=== PATIENT | male | born 1975 | race Caucasian/White ===

== ENCOUNTER → 2017-08-08 | Outpatient (CLI) | payer BC ==
[~2017-08-08] MED LIST: HYDR-4309 PO; LEVO-85 PO; NO RTN MEDS; PHEN118S56 PO
--- NOTE | 2017-08-08 11:29 | RADIOLOGY IMAGING REPORT ---
FACILITY: [facility] PATIENT NAME: Dhruv Ramirez : 1975 MR: [id number] V: [id number] EXAM DATE: ORDERING PHYSICIAN: DIEGO MCGRAW TECHNOLOGIST: Location: [facility] [place] Patient: Dhruv Ramirez : 1975 Visit/Account:[id number] Date of Sevice: 08/08/2017 Exam type: FOREARM RIGHT History: Right forearm pain Comparison: None. Findings: Two views of the right forearm reveal no evidence of acute fracture or dislocation. No lytic or anni tic bone lesion is seen. Incidentally noted is a tiny olecranon spur. IMPRESSION: 1. Tiny right olecranon spur Report Dictated By: Radha Barahona MD at 08/08/2017 11:24 AM Report E-Signed By: Radha Barahona MD at 08/08/2017 11:25 AM WSN:[id number]
== END ==
LOC: RAD 10:03
PROVIDERS: ATTEND Family Medicine
DX: M77.8 Other enthesopathies, not elsewhere classified (principal)